=== PATIENT | female | born 1970 | race Caucasian/White ===

== ENCOUNTER 2020-04-14 16:12 | Emergency (ER) | payer BC ==
[2020-04-14 16:18] VITALS: BP 115/53; PULSE 78; RESP 20; TEMP 98.3
[2020-04-14] MEDS ORDERED: ONDANSETRON 4 MG ODT STARTER PACK 2 TAB BTL PO STA (16:52)
[2020-04-14] MEDS ORDERED: KETOROLAC 15 MG/ML 1 ML VIAL IM STA (16:52)
[2020-04-14 17:17] LABS: Appearance,Urine Clear (Clear); Bilirubin,Urine Negative (Negative); Blood,Urine Moderate (Negative); Color,Urine Yellow; Glucose,Urine (UA) Negative (Negative); Ketones,Urine 1+ (Negative); Leukocyte Esterase,Urine Trace (Negative); Mucus,Urine Many /hpf; Nitrite,Urine Negative (Negative); PH, Urine 8.5 (5.0-8.0); Protein,Urine 1+ (Negative); RBC,Urine >182 /hpf (0-5); Specific Gravity,Urine 1.024 (1.001-1.035); Squamous Epithelial Cell,Urine 1 /hpf (0-4); Urobilinogen,Urine <2.0 mg/dL (<2.0); WBC,Urine 8 /hpf (0-5)
--- NOTE | 2020-04-14 17:30 | ED ---
Abdominal Pain HPI - General Chief Complaint: Abdominal Pain Stated Complaint: abd pain Time Seen by Provider: 04/14/20 16:37 Source: patient Mode of arrival: ambulatory Limitations: no limitations - History of Present Illness Initial Comments: 49-year-old female presenting today for chief complaint of right flank pain. Patient states that she has had right flank pain for the past few days. Patient states she does have history of kidney stones. She states it felt similar to symptoms she experienced when she had the previous kidney stone. Patient states that she had sudden increase of pain around 2 PM. She states she has associated nausea denies vomiting. Patient denies any fevers. She states she has had some urinary urgency. Patient denies noting specific hematuria, as she has been straining. Patient denies any upper abdominal pain chest pain shortness of breath. Patient states the pain in the right flank was spasm-like, colicky com ing and going. Patient states after getting a bad in the ER the pain suddenly went away she states she currently does not have flank pain. Patient VS within acceptable limits. Afebrile, nontoxic in appearance. - Related Data Home Medications Medication Instructions Recorded Confirmed Citalopram Hydrobromide [CeleXA] 20 mg PO DAILY 08/26/15 08/26/15 Previous Rx's Medication Instructions Recorded HYDROcodone/APAP 5-325MG [Dinosaur 5] 1 each PO Q4HR PRN #30 tab 08/26/15 Cephalexin [Keflex] 500 mg PO Q6HR 7 Days #28 cap 04/14/20 Allergies Allergy/AdvReac Type Severity Reaction Status Date / Time Penicillins Allergy Unknown Verified 04/14/20 16:18 Review of Systems ROS Statement: Those systems with pertinent positive or pertinent negative responses have been documented in the HPI. ROS Other: All systems not noted in ROS Statement are negative. Past Medical History Past Medical History: No Reported History Additional Past Medical History / Comment(s): kidney stones History of Any Multi-Drug Resistant Organisms: None Reported Past Surgical History: No Surgical Hx Reported Past Psychological History: Anxiety, Depression Smoking Status: Current every day smoker Past Alcohol Use History: None Reported Past Drug Use History: Marijuana General Exam - General Exam Comments Initial Comments: General: The patient is awake and alert, in no distress, and does not appear acutely ill. Eye: Pupils are equal, round and reactive to light, extra-ocular movements are intact. No nystagmus. There is normal conjunctiva bilaterally. No signs of icterus. Cardiovascular: There is a regular rate and rhythm. No murmur, rub or gallop is appreciated. Respiratory: Lungs are clear to auscultation, respirations are non-labored, breath sounds are equal. No wheezes, stridor, rales, or rhonchi. Gastrointestinal: Soft, non-distended, non-tender abdomen without masses or organomegaly noted. There is no rebound or guarding present. Musculoskeletal: Normal ROM, no tenderness. Strength 5/5. Sensation intact. Pulses equal bilaterally 2+. Neurological: A&O x 3. CN II-XII intact grossly, There are no obvious motor or sensory deficits. Coordination appears grossly intact. Speech is normal. Skin: Skin is warm and dry and no rashes or lesions are noted. Psychiatric: Cooperative, appropriate mood & affect, normal judgment. Limitations: no limitations Course Vital Signs 04/14/20 16:16 Temperature 98.3 F Pulse Rate 78 Respiratory 20 Rate Blood Pressure 115/53 O2 Sat by Pulse 99 Oximetry Medical Decision Making - Medical Decision Making Refused CT/Labs as pain is gone. Pt states she will return if symptoms return. I recommended at least getting UA. UA blood, 8WBC. No bacteria. Patient will be treated with keflex. is to return for pain/fevers. Patient otherwise appears well nontoxic and we suspect that this is a kidney stone. I did recommend patient f/u with urology for the suspected stone and hematuria. pt agreeable to discharge and care plan. my attending Dr. Alvarez is agreeable to care plan and discharge. - Lab Data Lab Results 04/14/20 Range/Units 17:01 Urine Color Yellow Urine Appearance Clear (Clear) Urine pH 8.5 H (5.0-8.0) Ur Specific [place] 1.024 (1.001-1.035) Urine Protein 1+ H (Negative) Urine Glucose (UA) Negative (Negative) Urine Ketones 1+ H (Negative) Urine Blood Moderate H (Negative) Urine Nitrite Negative (Negative) Urine Bilirubin Negative (Negative) Urine Urobilinogen <2.0 (<2.0) mg/dL Ur Leukocyte Esterase Trace H (Negative) Urine RBC >182 H (0-5) /hpf Urine WBC 8 H (0-5) /hpf Ur Squamous Epith Cells 1 (0-4) /hpf Urine Mucus Many H (None) /hpf Disposition Clinical Impression: Right flank pain, History of kidney stones Disposition: HOME SELF-CARE Condition: Good Instructions (If sedation given, give patient instructions): Kidney Stones (ED), Flank Pain (ED) Additional Instructions: Please use medication as discussed. Please follow-up with family doctor in the next 2 days as well as urology. Please return to emergency room if the symptoms increase or worsen, develop fevers nausea vomiting. Prescriptions: Cephalexin [Keflex] 500 mg PO Q6HR 7 Days #28 cap Is patient prescribed a controlled substance at d/c from ED?: No Referrals: Clifford Love MD [Primary Care Provider] - 1-2 days Wilner Mcarthur MD [STAFF PHYSICIAN] - 1-2 days Time of Disposition: 17:29
== END 2020-04-14 17:36 | disposition home or self-care (01) ==
LOC: EC 16:12
DX: R10.9 Unspecified abdominal pain (principal); F41.9 Anxiety disorder, unspecified; F32.9 Major depressive disorder, single episode, unspecified; F17.200 Nicotine dependence, unspecified, uncomplicated; Z79.899 Other long term (current) drug therapy; Z88.0 Allergy status to penicillin; Z87.442 Personal history of urinary calculi
CPT/HCPCS: 81001; 96372; 99284; J1885; S0119

== ENCOUNTER → 2021-12-01 | Outpatient (CLI) | payer BC ==
--- NOTE | 2021-12-02 14:56 | MM ---
Reason for Exam: Screening (asymptomatic). Last mammogram was performed 18 year(s) and 2 month(s) ago. Patient History: Menarche at age 13. First Full-Term at age 34. Late child-bearing (after 30). Perimenopausal. Patient has history of breast feeding. Last menstrual period: 11/16/2021 Risk Values: Krystin 5 year model risk: 1.3%. NCI Lifetime model risk: 12.1%. Prior Study Comparison: No prior studies available for comparison. Tissue Density: The breast tissue is extremely dense which could obscure a lesion on mammography. Findings: Analyzed By CAD. No suspicious groups of microcalcifications, spiculated or lobular masses, architectural distortion or other secondary signs of malignancy are mammographically apparent. Overall Assessment: Negative, BI-RAD 1 Management: Screening Mammogram of both breasts in 1 year. A negative mammogram report should not preclude additional follow up of suspicious palpable abnormalities. Patient should continue monthly self breast exam. A clinical breast exam by your physician is recommended on an annual basis and results should be correlated with mammographic findings. Electronically signed and approved by: Kaden Andersen D.O. Radiologis
== END | disposition home or self-care (01) ==
LOC: RADMAMWWP 15:40
PROVIDERS: ATTEND Obstetrics & Gynecology
DX: Z12.31 Encounter for screening mammogram for malignant neoplasm of breast (principal)
CPT/HCPCS: 77063; 77067